=== PATIENT | female | born 2000 | race Caucasian/White ===

== ENCOUNTER 2023-05-03 11:42 | Emergency (ER) | payer MEDICAID ==
[~2023-05-03] VITALS: Ht 162.6 cm; Wt 91.0 kg
[2023-05-03 11:48] VITALS: O2SAT 98
[2023-05-03 13:09] LABS: HEMOGLOBIN. 15.1 g/dL (12.0-16.0); MEAN CORPUSCULAR HEMOGLOBIN 28.4 pg (28.0-32.0); MEAN CORPUSCULAR HGB CONC 32.9 g/dL (31.0-37.0); MEAN CORPUSCULAR VOLUME 86.1 fL (81.0-99.0); MEAN PLATELET VOLUME 8.8 fl (7.4-10.4); PLATELET 325 x1000/uL (130-400); RED BLOOD CELL COUNT 5.33 mill/uL (4.2-5.4); RED CELL DISTRIBUTION WIDTH 13.2 % (11.6-14.6); WHITE BLOOD COUNT 15.1 x1000/uL (4.5-11.0)
[2023-05-03 13:20] LABS: DIFFERENTIAL COMMENT 1
[2023-05-03] MEDS: HYDROCODONE/ACETAMINOPHEN 5/325MG TABLET PO STA (13:20)
[2023-05-03] MEDS: FAMOTIDINE 20MG TABLET PO ONE (13:21)
[2023-05-03] MEDS: ONDANSETRON 4MG ODT PO STA (13:21)
[2023-05-03 13:49] LABS: PLATELET ESTIMATE NORMAL
[2023-05-03 13:58] LABS: ALANINE AMINOTRANSFERASE 49 IU/L (10-49); ALBUMIN 5.2 g/dL (3.2-4.8); ASPARTATE AMINOTRANSFERASE 28 IU/L (<34); BILIRUBIN TOTAL 1.4 mg/dL (0.1-1.0); CALCIUM 9.5 mg/dL (8.7-10.4); CARBON DIOXIDE 27 mEq/L (21-32); CHLORIDE 105 mEq/L (98-107); CREATININE 0.7 mg/dL (0.6-1.0); GLUCOSE 123 mg/dL (70-105); POTASSIUM 4.1 mEq/L (3.5-5.1); PROTEIN TOTAL 8.8 g/dL (6.0-8.3); SODIUM 138 mEq/L (136-145); UREA NITROGEN BLOOD 16 mg/dL (9-23)
[2023-05-03] MEDS: MAGNESIUM/ALUMINUM HYDROXIDE/SIMETHICONE 30ML UDC PO STA (14:30)
[2023-05-03 15:28] LABS: CLARITY URINE TURBID (CLEAR); COLOR URINE DARK YELLOW (YELLOW); GLUCOSE URINE NEGATIVE (NEGATIVE); KETONES URINE 2+ (NEGATIVE); LEUKOCYTE ESTERASE URINE NEGATIVE (NEGATIVE); NITRITE URINE NEGATIVE (NEGATIVE); OCCULT BLOOD URINE NEGATIVE (NEGATIVE); PH URINE 5.5 (4.5-8.0); PROTEIN URINE 1+ (NEGATIVE); SPECIFIC GRAVITY URINE 1.035 (1.005-1.030); UROBILINOGEN URINE 0.2 E.U./dL (0.2-1.0)
[2023-05-03 15:31] LABS: UCG SCREEN NEGATIVE
[2023-05-03] MEDS: SODIUM CHLORIDE 0.9% 1,000 ML IV ONE (15:39)
[2023-05-03 15:47] LABS: SQUAMOUS EPITHELIAL CELL URINE RARE /lpf (RARE/1+)
[2023-05-03 15:48] LABS: AMORPHOUS SEDIMENT URINE 3+ /lpf; BACTERIA URINE 1+; RBC URINE NONE SEEN /hpf (0-2); WBC URINE 0-2 /hpf (0-2)
[2023-05-03] MEDS ORDERED: SULF1TAB47 MT (16:49)
[2023-05-03] MEDS: CEFTRIAXONE 1GM/50ML 50 ML IV NR (17:44)
[2023-05-03 17:47] VITALS: BP 111/61; PULSE 97; RESP 18; TEMP 97.7
== END 2023-05-03 17:49 | disposition home or self-care (01) ==
LOC: EDBD 12:09 → ER 12:09
DX: R10.13 Epigastric pain (principal)
CPT/HCPCS: 80053; 81003; 81025; 83690; 85025; 36415; 76705; 96360; 99284; Q0162; J7030; Z7610

== ENCOUNTER 2023-05-07 13:36 | Emergency (ER) | payer MEDICAID, OTHER ==
[~2023-05-07] VITALS: Ht 160 cm; Wt 93.4 kg
[~2023-05-07 13:36] MED LIST: SULF1TAB47 MT
[2023-05-07 14:15] VITALS: O2SAT 98
[2023-05-07] MEDS ORDERED: BACITRACIN ZINC OINT UDPKT TOP ONE (17:00)
[2023-05-07] MEDS ORDERED: LIDOCAINE HCL/PF 1% 10 MG/ML 5ML VIAL INFIL ONE (17:00)
[2023-05-07 19:36] VITALS: BP 124/82; PULSE 75; RESP 16; TEMP 98.6
== END 2023-05-07 19:38 | disposition home or self-care (01) ==
LOC: ER 13:41
DX: L02.611 Cutaneous abscess of right foot (principal)
CPT/HCPCS: 10060; 99282; J3490; Z7610 ×3